=== PATIENT | female | born 1940 | race Caucasian/White ===

== ENCOUNTER 2018-10-16 21:55 | Inpatient (IN) | payer MEDICARE ==
[2018-10-17] MEDS ORDERED: Lactated Ringers 1,000 ML IV SCH
[2018-10-17] MEDS ORDERED: fentaNYL 100 MCG/2 ML SDV IVPUSH ONE (00:02)
[2018-10-17] MEDS ORDERED: Ondansetron 4 MG/2 ML SDV IVPUSH ONE (00:02)
--- NOTE | 2018-10-17 00:03 | EDM.PDOC ---
ED HPI GENERAL MEDICAL PROBLEM - General Chief Complaint: Abdominal Pain Stated Complaint: GALLBLADDER ATTACK? Time Seen by Provider: 10/16/18 23:57 Source of Information: Reports: Patient, Family, RN Notes Reviewed History Limitations: Reports: No Limitations - History of Present Illness INITIAL COMMENTS - FREE TEXT/NARRATIVE: 78-year-old female presents to the emergency department today complaint of abdominal pain, she states it happened after she eaten a meal pain is predominantly in the upper half of her abdomen nausea and vomiting as well still passing gas does have a history of acute appendicitis several years ago abdominal Pain Score (Numeric/FACES): 8 - Related Data Allergies Allergy/AdvReac Type Severity Reaction Status Date / Time erythromycin base Allergy Nausea and Verified 10/16/18 23:09 Vomiting Home Meds: Home Meds Aspirin 80 mg PO DAILY 10/16/18 [History] Famotidine [Pepcid] 20 mg PO DAILY 10/16/18 [History] Metoprolol Succinate 100 mg PO DAILY 10/16/18 [History] amLODIPine Besylate [Amlodipine Besylate] 10 mg PO DAILY 10/16/18 [History] Past Medical History Cardiovascular History: Reports: Hypertension Gastrointestinal History: Reports: GERD Oncologic (Cancer) History: Reports: Breast - Past Surgical History Cardiovascular Surgical History: Reports: None GI Surgical History: Reports: Appendectomy Oncologic Surgical History: Reports: Mastectomy Social & Family History - Tobacco Use Smoking Status *Q: Never Smoker - Recreational Drug Use Recreational Drug Use: No ED ROS GENERAL - Review of Systems Review Of Systems: See Below Constitutional: Reports: No Symptoms HEENT: Reports: No Symptoms Respiratory: Reports: No Symptoms Cardiovascular: Reports: No Symptoms GI/Abdominal: Reports: Abdominal Pain, Flatus, Nausea. Denies: Constipation, Diarrhea, Vomiting : Reports: No Symptoms ED EXAM, GI/ABD - Physical Exam Exam: See Below Exam Limited By: No Limitations General Appearance: Alert, WD/WN, No Apparent Distress Respiratory/Chest: No Respiratory Distress, Lungs Clear, Normal Breath Sounds, No Accessory Muscle Use, Chest Non-Tender Cardiovascular: Normal Peripheral Pulses, Regular Rate, Rhythm GI/Abdominal Exam: Normal Bowel Sounds, Soft, No Distention, Guarding, Tender ( Right upper quadrant) Course - Vital Signs Last Recorded V/S: Last Vital Signs Temp 95.9 F 10/16/18 22:53 Pulse 63 10/17/18 01:44 Resp 12 10/17/18 01:44 BP 129/61 10/17/18 01:44 Pulse Ox 98 10/17/18 01:44 - Orders/Labs/Meds Orders: Active Orders 24 hr Category Date Time Status Peripheral IV Care [RC] . DIRECTED Care 10/17/18 00:00 Active UA W/MICROSCOPIC [URIN] Urgent Lab 10/17/18 00:00 Ordered Lactated Ringers [Ringers, Lactated] 1,000 ml Med 10/17/18 00:00 Active IV ASDIRECTED Sodium Chloride 0.9% [Normal Saline] 74 ml Med 10/17/18 00:15 Active IV ASDIRECTED Sodium Chloride 0.9% [Saline Flush] Med 10/17/18 00:00 Active 10 ml FLUSH ASDIRECTED PRN Peripheral IV Insertion Adult [OM.PC] Urgent Oth 10/17/18 00:00 Ordered Medication Orders Lactated Ringer's (Ringers, Lactated) 1,000 mls @ 500 mls/hr IV ASDIRECTED NORA Last Admin: 10/17/18 01:01 Dose: 500 mls/hr Sodium Chloride (Normal Saline) 74 mls @ 0 mls/hr IV ASDIRECTED NORA Last Admin: 10/17/18 01:46 Dose: 3 mls/hr Sodium Chloride (Saline Flush) 10 ml FLUSH ASDIRECTED PRN PRN Reason: Keep Vein Open Last Admin: 10/17/18 01:46 Dose: 10 ml Admin: 10/17/18 01:01 Dose: 10 ml Labs: Laboratory Tests 10/17/18 10/17/18 10/17/18 Range/Units 00:10 00:10 00:10 WBC 8.4 (4.5-11.0) K/uL RBC 3.90 (3.30-5.50) M/uL Hgb 12.1 (12.0-15.0) g/dL Hct 36.5 (36.0-48.0) % MCV 94 (80-98) fL MCH 31 (27-31) pg MCHC 33 (32-36) % Plt Count 151 (150-400) K/uL Neut % (Auto) 74 H (36-66) % Lymph % (Auto) 19 L (24-44) % [place] % (Auto) 6 (2-6) % Eos % (Auto) 1 L (2-4) % Baso % (Auto) 0 (0-1) % Sodium 140 (140-148) mmol/L Potassium 3.5 L (3.6-5.2) mmol/L Chloride 104 (100-108) mmol/L Carbon Dioxide 29 (21-32) mmol/L Anion Gap 10.5 (5.0-14.0) mmol/L BUN 18 (7-18) mg/dL Creatinine 0.8 (0.6-1.0) mg/dL Est Cr Clr Drug Dosing 46.40 mL/min Estimated GFR (MDRD) > 60 (>60) Glucose 158 H (74-106) mg/dL Lactic Acid 1.0 (0.4-2.0) mmol/L Calcium 9.0 (8.5-10.1) mg/dL Total Bilirubin 0.2 (0.2-1.0) mg/dL AST 20 (15-37) U/L ALT 22 (12-78) U/L Alkaline Phosphatase 71 (46-116) U/L Total Protein 7.3 (6.4-8.2) g/dL Albumin 3.4 (3.4-5.0) g/dL Globulin 3.9 H (2.3-3.5) g/dL Albumin/Globulin Ratio 0.9 L (1.2-2.2) Lipase 180 (73-393) U/L Meds: Medications Generic Name Dose Route Start Last Admin Trade Name Freq PRN Reason Stop Dose Admin Lactated Ringer's 1,000 mls @ 500 mls/hr 10/17/18 00:00 10/17/18 01:01 Ringers, Lactated IV 500 mls/hr ASDIRECTED NORA Administration Sodium Chloride 74 mls @ 0 mls/hr 10/17/18 00:15 10/17/18 01:46 Normal Saline IV 3 mls/hr ASDIRECTED NORA Administration KVO Sodium Chloride 10 ml 10/17/18 00:00 10/17/18 01:46 Saline Flush FLUSH 10 ml ASDIRECTED PRN Administration Keep Vein Open Discontinued Medications Generic Name Dose Route Start Last Admin Trade Name Freq PRN Reason Stop Dose Admin Fentanyl 50 mcg 10/17/18 00:02 10/17/18 00:57 Sublimaze IVPUSH 10/17/18 00:03 50 mcg ONETIME ONE Administration Iopamidol 112 ml 10/17/18 00:15 10/17/18 01:45 Isovue-300 (61%) IV 112 ml . DIRECTED NORA Administration Ondansetron HCl 4 mg 10/17/18 00:02 10/17/18 00:56 Zofran IVPUSH 10/17/18 00:03 4 mg ONETIME ONE Administration Sodium Chloride 10 ml 10/17/18 00:14 10/17/18 01:53 Saline Flush FLUSH 10/17/18 00:15 Not Given ONETIME ONE Departure - Departure Time of Disposition: 02:44 Disposition: Refer to Observation Condition: Fair Clinical Impression: Dilated bile duct - Discharge Information Referrals: Brook Woodard MD [Primary Care Provider] - Forms: ED Department Discharge - My Orders Last 24 Hours: My Active Orders 10/17/18 00:00 Peripheral IV Care [RC] . DIRECTED UA W/MICROSCOPIC [URIN] Urgent Lactated Ringers [Ringers, Lactated] 1,000 ml IV ASDIRECTED Sodium Chloride 0.9% [Saline Flush] 10 ml FLUSH ASDIRECTED PRN Peripheral IV Insertion Adult [OM.PC] Urgent 10/17/18 00:15 Sodium Chloride 0.9% [Normal Saline] 74 ml IV ASDIRECTED - Assessment/Plan Last 24 Hours: My Active Orders 10/17/18 00:00 Peripheral IV Care [RC] . DIRECTED UA W/MICROSCOPIC [URIN] Urgent Lactated Ringers [Ringers, Lactated] 1,000 ml IV ASDIRECTED Sodium Chloride 0.9% [Saline Flush] 10 ml FLUSH ASDIRECTED PRN Peripheral IV Insertion Adult [OM.PC] Urgent 10/17/18 00:15 Sodium Chloride 0.9% [Normal Saline] 74 ml IV ASDIRECTED Plan: Assessment Acuity = acute Site and laterality = dilated gallbladder duct 9 mm Etiology = suspicious for stone Manifestations = abdominal pain Location of injury = Home Lab values = CBC, CMP unremarkable CT scan describes a dilated duct above Plan Called discussed the case with Dr. Pereyra at 2:30 he kindly accepted the patient for admission to the hospital This note was dictated using [employer] voice recognition software please call with any questions on syntax or grammar.
[2018-10-17] MEDS ORDERED: Sodium Chloride 0.9% 10 ML Syringe FLUSH ONE (00:14)
[2018-10-17] MEDS ORDERED: Iopamidol 612 MG/ML 150 ML Bottle IV SCH (00:15)
[2018-10-17] MEDS: Sodium Chloride 0.9% 10 ML Syringe FLUSH PRN ×2 (01:01→01:46)
[2018-10-17] MEDS ORDERED: Ondansetron 4 MG/2 ML SDV IV PRN (02:49)
[2018-10-17] MEDS ORDERED: fentaNYL 100 MCG/2 ML SDV IVPUSH PRN (02:51)
[2018-10-17] MEDS ORDERED: Sodium Chloride 0.9% 1,000 ML IV SCH (07:45)
--- NOTE | 2018-10-17 08:01 | PCM.HP ---
H&P History of Present Illness - General Date of Service: 10/17/18 Admit Problem/Dx: Admission Diagnosis/Problem Admission Diagnosis/Problem Abdominal pain Source of Information: Patient History Limitations: Reports: No Limitations (.) - History of Present Illness Initial Comments - Free Text/Narative: 78-year-old female with past medical history of hypertension, breast cancer, previous history of rheumatoid heart disease, systolic heart murmur came to the ED with a concerns of abdominal pain which was started since last 4 hours. Patient reports that the pain is situated in the upper abdominal area. Patient denies any dyspepsia, heartburn, acid reflux. Patient denies any recent fever, sick contacts. Patient had 4 episodes of vomiting with abdominal pain. Patient denies any blood in the vomiting. Denies any joint pains, previous history of recurrent abdominal pains. Denies any abdominal surgeries. In the ED patient had CT abdomen pelvis which showed dilated common bile duct without any stone. Patient responded with fentanyl IV medication. Patient is full code. Other review of systems are not significant abdominal Pain Score (Numeric/FACES): 7 - Related Data Allergies/Adverse Reactions: Allergies Allergy/AdvReac Type Severity Reaction Status Date / Time erythromycin base Allergy Nausea and Verified 10/17/18 03:52 Vomiting latex Allergy Rash Verified 10/17/18 03:52 Home Medications: Home Meds Aspirin 81 mg PO DAILY 10/16/18 [History] Famotidine [Pepcid] 20 mg PO DAILY 10/16/18 [History] Metoprolol Succinate 100 mg PO DAILY 10/16/18 [History] amLODIPine Besylate [Amlodipine Besylate] 10 mg PO DAILY 10/16/18 [History] Calcium Carbonate/Vitamin D3 [Calcium 500 + Vit D 400] 1 each PO BID 10/17/18 [ History] Past Medical History HEENT History: Reports: Cataract, Hard of Hearing, Impaired Vision Cardiovascular History: Reports: Hypertension Gastrointestinal History: Reports: GERD Musculoskeletal History: Reports: Fracture Oncologic (Cancer) History: Reports: Breast Dermatologic History: Reports: Other (See Below) Other Dermatologic History: toe fungus - Infectious Disease History Infectious Disease History: Reports: Chicken Pox, Measles, Mumps, Shingles - Past Surgical History HEENT Surgical History: Reports: Tonsillectomy Cardiovascular Surgical History: Reports: None GI Surgical History: Reports: Appendectomy Oncologic Surgical History: Reports: Mastectomy Social & Family History - Family History Family Medical History: Noncontributory - Tobacco Use Smoking Status *Q: Former Smoker Used Tobacco, but Quit: Yes Month/Year Tobacco Last Used: 03/1979 Second Hand Smoke Exposure: No - Caffeine Use Caffeine Use: Reports: Coffee Caffeine Use Comment: 2 cups/daily - Recreational Drug Use Recreational Drug Use: No H&P Review of Systems - Review of Systems: Review Of Systems: See Below General: Reports: Fatigue. Denies: Fever, Chills, Weakness, Night Sweats, Diaphoresis HEENT: Denies: Dysphasia, Ear Pain, Eye Pain Pulmonary: Denies: Shortness of Breath, Wheezing, Pleuritic Chest Pain, Cough, Sputum Cardiovascular: Denies: Chest Pain, Palpitations, Dyspnea on Exertion, Orthopnea , PND Gastrointestinal: Reports: Abdominal Pain, Anorexia, Nausea, Vomiting. Denies: Black Stool, Bloody Stool, Constipation, Diarrhea, Decreased Appetite, Hematemesis Genitourinary: Denies: Dysuria, Frequency, Burning Musculoskeletal: Denies: Neck Pain, Shoulder Pain Skin: Denies: Cyanosis, Jaundice Psychiatric: Denies: Confusion, Depression, Mood Lability Neurological: Denies: Confusion, Dizziness Hematologic/Lymphatic: Denies: Anemia Exam - Exam Exam: See Below - Vital Signs Vital Signs: Last Vital Signs Temp 36.2 C 10/17/18 03:33 Pulse 67 10/17/18 03:33 Resp 18 10/17/18 03:33 BP 140/63 10/17/18 03:33 Pulse Ox 92 L 10/17/18 03:33 Weight: 76.929 kg - Exam Quality Assessment: No: Supplemental Oxygen General: Alert, Oriented Neck: Supple, Trachea Midline Lungs: Clear to Auscultation, Normal Respiratory Effort Cardiovascular: Regular Rate, Regular Rhythm, Systolic Murmur GI/Abdominal Exam: Normal Bowel Sounds, Soft, Tender. No: Distended, Guarding, Rigid, Rebound Extremities: Normal Inspection, Normal Range of Motion Skin: Warm, Dry, Intact Neuro Extensive - Mental Status: Alert, Oriented x3, Normal Mood/Affect - Patient Data Lab Results Last 24 hrs: Laboratory Results - last 24 hr 10/17/18 10/17/18 10/17/18 Range/Units 00:10 00:10 00:10 WBC 8.4 (4.5-11.0) K/uL RBC 3.90 (3.30-5.50) M/uL Hgb 12.1 (12.0-15.0) g/dL Hct 36.5 (36.0-48.0) % MCV 94 (80-98) fL MCH 31 (27-31) pg MCHC 33 (32-36) % Plt Count 151 (150-400) K/uL Neut % (Auto) 74 H (36-66) % Lymph % (Auto) 19 L (24-44) % [place] % (Auto) 6 (2-6) % Eos % (Auto) 1 L (2-4) % Baso % (Auto) 0 (0-1) % Sodium 140 (140-148) mmol/L Potassium 3.5 L (3.6-5.2) mmol/L Chloride 104 (100-108) mmol/L Carbon Dioxide 29 (21-32) mmol/L Anion Gap 10.5 (5.0-14.0) mmol/L BUN 18 (7-18) mg/dL Creatinine 0.8 (0.6-1.0) mg/dL Est Cr Clr Drug Dosing 46.40 mL/min Estimated GFR (MDRD) > 60 (>60) Glucose 158 H (74-106) mg/dL Lactic Acid 1.0 (0.4-2.0) mmol/L Calcium 9.0 (8.5-10.1) mg/dL Total Bilirubin 0.2 (0.2-1.0) mg/dL AST 20 (15-37) U/L ALT 22 (12-78) U/L Alkaline Phosphatase 71 (46-116) U/L Total Protein 7.3 (6.4-8.2) g/dL Albumin 3.4 (3.4-5.0) g/dL Globulin 3.9 H (2.3-3.5) g/dL Albumin/Globulin Ratio 0.9 L (1.2-2.2) Lipase 180 (73-393) U/L 10/17/18 10/17/18 Range/Units 06:01 06:01 WBC 8.1 (4.5-11.0) K/uL RBC 3.54 (3.30-5.50) M/uL Hgb 10.8 L (12.0-15.0) g/dL Hct 33.0 L (36.0-48.0) % MCV 93 (80-98) fL MCH 31 (27-31) pg MCHC 33 (32-36) % Plt Count 146 L (150-400) K/uL Neut % (Auto) 79 H (36-66) % Lymph % (Auto) 14 L (24-44) % [place] % (Auto) 7 H (2-6) % Eos % (Auto) 0 L (2-4) % Baso % (Auto) 0 (0-1) % Sodium 139 L (140-148) mmol/L Potassium 3.6 (3.6-5.2) mmol/L Chloride 104 (100-108) mmol/L Carbon Dioxide 27 (21-32) mmol/L Anion Gap 11.6 (5.0-14.0) mmol/L BUN 14 (7-18) mg/dL Creatinine 0.7 (0.6-1.0) mg/dL Est Cr Clr Drug Dosing 53.02 mL/min Estimated GFR (MDRD) > 60 (>60) Glucose 150 H (74-106) mg/dL Lactic Acid (0.4-2.0) mmol/L Calcium 8.9 (8.5-10.1) mg/dL Total Bilirubin 0.3 (0.2-1.0) mg/dL AST 18 (15-37) U/L ALT 20 (12-78) U/L Alkaline Phosphatase 67 (46-116) U/L Total Protein 6.7 (6.4-8.2) g/dL Albumin 3.1 L (3.4-5.0) g/dL Globulin 3.6 H (2.3-3.5) g/dL Albumin/Globulin Ratio 0.9 L (1.2-2.2) Lipase (73-393) U/L Result Diagrams: 10/17/18 06:01 10/17/18 06:01 - Problem List (1) Dilated bile duct SNOMED Code(s): 799213260 ICD Code: K83.8 - OTHER SPECIFIED DISEASES OF BILIARY TRACT Status: Acute Current Visit: Yes (2) Benign essential HTN SNOMED Code(s): 6254237 ICD Code: I10 - ESSENTIAL (PRIMARY) HYPERTENSION Status: Chronic Current Visit: No (3) Hx of rheumatic heart disease SNOMED Code(s): 597372586 ICD Code: Z86.79 - PERSONAL HISTORY OF OTHER DISEASES OF THE CIRCULATORY SYSTEM Status: Chronic Current Visit: No (4) Malignant neoplasm of breast SNOMED Code(s): 318888530 ICD Code: C50.919 - MALIGNANT NEOPLASM OF UNSP SITE OF UNSPECIFIED FEMALE BREAST Status: Chronic Current Visit: No (5) Systolic murmur SNOMED Code(s): 83901339 ICD Code: R01.1 - CARDIAC MURMUR, UNSPECIFIED Status: Chronic Current Visit: No Problem List Initiated/Reviewed/Updated: Yes Orders Last 24hrs: Active Orders 24 hr Category Date Time Status Patient Status [ADT] Routine ADT 10/17/18 02:45 Active Intake and Output [RC] QSHIFT Care 10/17/18 02:49 Active Oxygen Therapy [RC] PRN Care 10/17/18 02:49 Active Up With Assistance [RC] ASDIRECTED Care 10/17/18 02:49 Active VTE/DVT Education [RC] Per Unit Routine Care 10/17/18 02:49 Active Vital Signs [RC] Q4H Care 10/17/18 02:45 Active Nothing per Oral Now Diet [DIET] Diet 10/17/18 Breakfast Active Abdomen wo Cont [MR] Stat Exams 10/17/18 02:52 Ordered UA W/MICROSCOPIC [URIN] Urgent Lab 10/17/18 00:00 Ordered Famotidine [Pepcid] Med 10/17/18 09:00 Active 20 mg PO DAILY Lactated Ringers [Ringers, Lactated] 1,000 ml Med 10/17/18 00:00 Active IV ASDIRECTED Non-Formulary Medication [NF Drug] Med 10/17/18 09:00 Active 100 each PO DAILY Ondansetron [Zofran] Med 10/17/18 02:49 Active 4 mg IV Q6H PRN Sodium Chloride 0.9% [Normal Saline] 1,000 ml Med 10/17/18 07:45 Ordered IV ASDIRECTED Sodium Chloride 0.9% [Saline Flush] Med 10/17/18 00:00 Active 10 ml FLUSH ASDIRECTED PRN amLODIPine [Norvasc] Med 10/17/18 09:00 Active 10 mg PO DAILY fentaNYL [Sublimaze] Med 10/17/18 02:51 Active 50 mcg IVPUSH Q6H PRN Peripheral IV Insertion Adult [OM.PC] Urgent Oth 10/17/18 00:00 Ordered Sequential Compression Device [OM.PC] Per Unit Routine Oth 10/17/18 02:49 Ordered Resuscitation Status Routine Resus Stat 10/17/18 02:45 Ordered Medication Orders Amlodipine Besylate (Norvasc) 10 mg PO DAILY NORA Famotidine (Pepcid) 20 mg PO DAILY NORA Fentanyl (Sublimaze) 50 mcg IVPUSH Q6H PRN PRN Reason: Pain (severe 7-10) Last Admin: 10/17/18 04:10 Dose: 50 mcg Lactated Ringer's (Ringers, Lactated) 1,000 mls @ 500 mls/hr IV ASDIRECTED NORA Last Admin: 10/17/18 01:01 Dose: 500 mls/hr Sodium Chloride (Normal Saline) 1,000 mls @ 150 mls/hr IV ASDIRECTED NORA Metoprolol Succinate 100mg Tab Pt Own* * 100 each PO DAILY [facility] Ondansetron HCl (Zofran) 4 mg IV Q6H PRN PRN Reason: Nausea/Vomiting Sodium Chloride (Saline Flush) 10 ml FLUSH ASDIRECTED PRN PRN Reason: Keep Vein Open Last Admin: 10/17/18 01:46 Dose: 10 ml Admin: 10/17/18 01:01 Dose: 10 ml Assessment/Plan Comment:: 78-year-old female with past medical history of breast cancer, hypertension, rheumatoid heart disease, heart murmur came to the ED with a complaining of abdominal pain diagnosed with questionable choledocholithiasis and admitted into the hospital in observational status. Patient WBC count is within normal limit Patient is responding with fentanyl IV Received 1 L of bolus Ringer lactate We will place her on 150 mL/h normal saline maintenance IV fluids N.p.o. for now We will do MRCP for confirmation of choledocholithiasis CBC CMP tomorrow CODE STATUS full code IV fluids 150 mL normal saline DVT prophylaxis Pass boots Diet n.p.o. for now Cespedes catheter not indicated
[2018-10-17] MEDS ORDERED: Morphine 2 MG/ML Syringe IVPUSH PRN (08:03)
[2018-10-17] MEDS: Sodium Chloride 0.9% 1,000 ML IV SCH ×3 (08:38→21:24)
[2018-10-17] MEDS ORDERED: Famotidine 20 MG Tab PO SCH (09:00)
[2018-10-17] MEDS: METOPROLOL SUCCINATE 100 MG PO SCH (09:48)
[2018-10-17] MEDS: amLODIPine 10 MG Tab**POM PO SCH (09:48)
[2018-10-17] MEDS ORDERED: Ondansetron 4 MG Tab.DIS PO PRN (14:24)
--- NOTE | 2018-10-17 14:27 | PCM.SN ---
- Free Text/Narrative Note: MRCP did not show evidence for common bile duct stone but did reveal cholelithiasis. I suspect the patient did pass a stone and this was the source of her symptoms. Pain is relatively mild at this time. She continues to have episodes of vomiting. She will remain hospitalized overnight for additional symptomatic management. Cholecystectomy may be considered tomorrow if she does not improve or will be completed as an outpatient next week if she's feeling better in the morning. Vazquez Cisneros M.D.
[2018-10-17] MEDS ORDERED: Pantoprazole 40 MG Vial IVPUSH ONE (15:00)
[2018-10-17] MEDS: Potassium Chloride 20 MEQ, Lidocaine 1% 2 ML in Sodium Chloride 0.9% 100 ML IV SCH ×2 (16:21→18:22)
[2018-10-17] MEDS: Acetaminophen 325 MG Tab PO PRN (16:29)
[2018-10-18] MEDS: METOPROLOL SUCCINATE 100 MG PO SCH (09:26)
[2018-10-18] MEDS: amLODIPine 10 MG Tab**POM PO SCH (09:26)
[2018-10-18] MEDS ORDERED: Lidocaine 1% with EPINEPHrine 1:100,000 50 ML MDV ONE (09:54)
[2018-10-18] MEDS ORDERED: Bupivacaine 0.5% 50 ML MDV ONE (09:54)
[2018-10-18] MEDS: Piperacillin/Tazobactam/Dext 3.375 GM in Premix Bag 1 BAG IV SCH ×3 (10:19→21:20)
[2018-10-18] MEDS ORDERED: Dexamethasone 4 MG/ML SDV ONE (11:07)
[2018-10-18] MEDS ORDERED: Ondansetron 4 MG/2 ML SDV ONE (11:07)
[2018-10-18] MEDS ORDERED: Neostigmine Methylsulfate 1 MG/ML 5 ML Syringe ONE (11:07)
[2018-10-18] MEDS ORDERED: Propofol 200 MG/20 ML SDV ONE (11:07)
[2018-10-18] MEDS ORDERED: Glycopyrrolate 0.2 MG/ML 5 ML MDV ONE (11:07)
[2018-10-18] MEDS ORDERED: Rocuronium 50 MG/5 ML Vial ONE (11:07)
[2018-10-18] MEDS ORDERED: fentaNYL 250 MCG/5 ML SDV ONE (11:07)
[2018-10-18] MEDS ORDERED: Naloxone 0.4 MG/ML SDV ONE (12:36)
[2018-10-18] MEDS: Acetaminophen/HYDROcodone 325-5 MG Tab PO PRN ×2 (14:53→19:09)
--- NOTE | 2018-10-18 14:57 | PCM.PN ---
- General Info Date of Service: 10/18/18 Subjective Update: Overnight the patient had difficulty with abdominal pain and nausea. She also had fevers last night. I did initiate antibiotics early this morning. AST, ALT and bilirubin have jumped up compared to yesterday. Alkaline phosphatase remains normal. No complaints of shortness of breath. Patient was interested in cholecystectomy if possible today. She is now status post cholecystectomy which was uneventful. Functional Status: Reports: Pain Controlled. Denies: Tolerating Diet - Review of Systems General: Reports: Fever Gastrointestinal: Reports: Abdominal Pain, Nausea - Patient Data Vitals - Most Recent: Last Vital Signs Temp 37.7 C 10/18/18 14:00 Pulse 71 10/18/18 14:00 Resp 18 10/18/18 14:00 BP 134/64 10/18/18 14:00 Pulse Ox 92 L 10/18/18 14:00 Weight - Most Recent: 76.929 kg I&O - Last 24 Hours: Intake & Output 10/17/18 10/18/18 10/18/18 22:59 06:59 14:59 Intake Total 2215 Output Total 200 300 Balance 2015 -300 Lab Results Last 24 Hours: Laboratory Results - last 24 hr 10/18/18 10/18/18 10/18/18 Range/Units 05:40 06:01 06:01 WBC 9.3 (4.5-11.0) K/uL RBC 3.62 (3.30-5.50) M/uL Hgb 10.7 L (12.0-15.0) g/dL Hct 34.1 L (36.0-48.0) % MCV 94 (80-98) fL MCH 30 (27-31) pg MCHC 31 L (32-36) % Plt Count 118 L (150-400) K/uL Sodium 141 (140-148) mmol/L Potassium 3.5 L (3.6-5.2) mmol/L Chloride 107 (100-108) mmol/L Carbon Dioxide 30 (21-32) mmol/L Anion Gap 7.5 (5.0-14.0) mmol/L BUN 10 (7-18) mg/dL Creatinine 0.7 (0.6-1.0) mg/dL Est Cr Clr Drug Dosing 53.01 mL/min Estimated GFR (MDRD) > 60 (>60) Glucose 113 H (74-106) mg/dL Calcium 8.5 (8.5-10.1) mg/dL Total Bilirubin 2.8 H D (0.2-1.0) mg/dL Direct Bilirubin 1.72 H (0.0-0.2) mg/dL AST 244 H D (15-37) U/L ALT 237 H (12-78) U/L Alkaline Phosphatase 87 (46-116) U/L Total Protein 5.9 L (6.4-8.2) g/dL Albumin 2.6 L (3.4-5.0) g/dL Globulin 3.3 (2.3-3.5) g/dL Albumin/Globulin Ratio 0.8 L (1.2-2.2) Thomas Results Last 24 Hours: Microbiology 10/18/18 12:35 Gram Stain - Final Gallbladder Med Orders - Current: Current Medications Acetaminophen (Tylenol) 650 mg PO Q4H PRN PRN Reason: Pain/Fever Last Admin: 10/17/18 16:29 Dose: 650 mg Hydrocodone Bitart/Acetaminophen ([place] 325-5 Mg) 1 - 2 tab PO Q4H PRN PRN Reason: Pain Amlodipine Besylate (Norvasc) 10 mg PO DAILY [facility] Last Admin: 10/18/18 09:26 Dose: 10 mg Sodium Chloride (Normal Saline) 1,000 mls @ 100 mls/hr IV ASDIRECTED [facility] Last Admin: 10/17/18 21:24 Dose: 150 mls/hr Piperacillin/Tazobactam/ (Dextrose 3.375 gm/ Premix) 50 mls @ 100 mls/hr IV Q6H [facility] Last Admin: 10/18/18 10:19 Dose: 100 mls/hr Morphine Sulfate (Morphine) 2 mg IVPUSH Q4H PRN PRN Reason: Pain (moderate 4-6) Metoprolol Succinate 100mg Tab Pt Own* * 100 each PO DAILY [facility] Last Admin: 10/18/18 09:26 Dose: Not Given Ondansetron HCl (Zofran) 4 mg IV Q6H PRN PRN Reason: Nausea/Vomiting Last Admin: 10/17/18 14:31 Dose: 4 mg Ondansetron HCl (Zofran Odt) 4 mg PO Q6H PRN PRN Reason: Nausea/Vomiting Last Admin: 10/18/18 09:26 Dose: 4 mg Sodium Chloride (Saline Flush) 10 ml FLUSH ASDIRECTED PRN PRN Reason: Keep Vein Open Last Admin: 10/17/18 01:46 Dose: 10 ml Discontinued Medications Bupivacaine HCl (Marcaine 0.5%) Confirm Administered Dose 50 ml .ROUTE .STK-MED ONE Stop: 10/18/18 09:55 Last Admin: 10/18/18 11:50 Dose: 20 ml Dexamethasone (Dexamethasone) Confirm Administered Dose 4 mg .ROUTE .STK-MED ONE Stop: 10/18/18 11:08 Famotidine (Pepcid) 20 mg PO DAILY [facility] Last Admin: 10/17/18 09:48 Dose: Not Given Fentanyl (Sublimaze) 50 mcg IVPUSH ONETIME ONE Stop: 10/17/18 00:03 Last Admin: 10/17/18 00:57 Dose: 50 mcg Fentanyl (Sublimaze) 50 mcg IVPUSH Q6H PRN PRN Reason: Pain (severe 7-10) Last Admin: 10/17/18 04:10 Dose: 50 mcg Fentanyl (Sublimaze) Confirm Administered Dose 250 mcg .ROUTE .STK-MED ONE Stop: 10/18/18 11:08 Glycopyrrolate (Robinul) Confirm Administered Dose 1 mg .ROUTE .STK-MED ONE Stop: 10/18/18 11:08 Lactated Ringer's (Ringers, Lactated) 1,000 mls @ 500 mls/hr IV ASDIRECTED [facility] Last Admin: 10/17/18 01:01 Dose: 500 mls/hr Sodium Chloride (Normal Saline) 74 mls @ 0 mls/hr IV ASDIRECTED [facility] Last Admin: 10/17/18 01:46 Dose: 3 mls/hr Potassium Chloride 20 meq/Lidocaine HCl 2 ml/ Sodium Chloride 112 mls @ 50 mls/ hr IV Q2H [facility] Stop: 10/17/18 19:59 Last Admin: 10/17/18 18:22 Dose: 50 mls/hr Iopamidol (Isovue-300 (61%)) 112 ml IV . DIRECTED [facility] Last Admin: 10/17/18 01:45 Dose: 112 ml Lidocaine/Epinephrine (Xylocaine 1% With Epinephrine 1:100,000) Confirm Administered Dose 50 ml .ROUTE .STK-MED ONE Stop: 10/18/18 09:55 Last Admin: 10/18/18 11:51 Dose: 20 ml Naloxone HCl (Narcan) Confirm Administered Dose 0.4 mg .ROUTE .STK-MED ONE Stop: 10/18/18 12:37 Neostigmine Methylsulfate (Neostigmine) Confirm Administered Dose 5 mg .ROUTE .STK-MED ONE Stop: 10/18/18 11:08 Ondansetron HCl (Zofran) 4 mg IVPUSH ONETIME ONE Stop: 10/17/18 00:03 Last Admin: 10/17/18 00:56 Dose: 4 mg Ondansetron HCl (Zofran) Confirm Administered Dose 4 mg .ROUTE .STK-MED ONE Stop: 10/18/18 11:08 Pantoprazole Sodium (Protonix Iv) 40 mg IVPUSH ONETIME ONE Stop: 10/17/18 15:01 Last Admin: 10/17/18 14:52 Dose: 40 mg Propofol (Diprivan 20 Ml) Confirm Administered Dose 200 mg .ROUTE .STK-MED ONE Stop: 10/18/18 11:08 Rocuronium [place] (Zemuron) Confirm Administered Dose 50 mg .ROUTE .STK-MED ONE Stop: 10/18/18 11:08 Sodium Chloride (Saline Flush) 10 ml FLUSH ONETIME ONE Stop: 10/17/18 00:15 Last Admin: 10/17/18 01:53 Dose: Not Given - Exam Quality Assessment: Supplemental Oxygen General: Alert, Oriented, Cooperative, No Acute Distress Lungs: Normal Respiratory Effort Cardiovascular: Regular Rate, Regular Rhythm GI/Abdominal Exam: Soft, No Distention Extremities: No Pedal Edema Psy/Mental Status: Alert, Normal Affect - Problem List Review Problem List Initiated/Reviewed/Updated: Yes - My Orders Last 24 Hours: My Active Orders 10/17/18 14:24 Ondansetron [Zofran ODT] 4 mg PO Q6H PRN 10/17/18 14:25 Acetaminophen [Tylenol] 650 mg PO Q4H PRN 10/18/18 10:00 Piperacillin/Tazobactam/Dext [Zosyn in Dextrose Iso-Osmotic 3.375 GM] 3.375 gm Premix Bag 1 bag IV Q6H 10/18/18 11:45 Admission Status [Patient Status] [ADT] Routine 10/18/18 12:20 Consult to Physician [CONS] Routine 10/18/18 12:21 Notify Provider Consults [RC] ASDIRECTED - Plan Plan:: ASSESSMENT AND PLAN - Acute cholecystitis with cholelithiasis - initial CT showed dilation of the biliary duct. No evidence for stone noted on MRCP yesterday. Patient has had persistent pain and nausea and now has fevers. Antibiotics initiated. Hepatic panel laboratory testing shows abnormalities today with a bilirubin of 2.8 and elevation in the transaminases which are new compared to yesterday. Cholecystectomy performed this afternoon. -Continue antibiotics -IV fluids -Pain control -Repeat labs in the morning Essential hypertension - continue home medications Maintenance issues - - DVT prophylaxis - mechanical - GI prophylaxis - not indicated - Nutrition - clear liquids, advance as tolerated Admission justification - patient was initially admitted as an observation status but she has been transitioned in patient with persistent symptoms, new lab abnormalities and fever which have developed during the hospital stay. Disposition - I would anticipate discharge home after the hospital stay. Vazquez Cisneros M.D.
[2018-10-18] MEDS: Sodium Chloride 0.9% 1,000 ML IV SCH (21:20)
[2018-10-19] MEDS: Acetaminophen/HYDROcodone 325-5 MG Tab PO PRN (03:23)
[2018-10-19] MEDS: Piperacillin/Tazobactam/Dext 3.375 GM in Premix Bag 1 BAG IV SCH ×4 (03:24→21:23)
[2018-10-19] MEDS: Sodium Chloride 0.9% 1,000 ML IV SCH (08:36)
[2018-10-19] MEDS: amLODIPine 10 MG Tab**POM PO SCH (08:53)
[2018-10-19] MEDS: METOPROLOL SUCCINATE 100 MG PO SCH (08:53)
[2018-10-19] MEDS ORDERED: D5 1/2 NS w/ 20 mEq/L KCl 1,000 ML IV SCH (10:00)
[2018-10-19] MEDS ORDERED: Metoprolol Succinate 50 MG Tab.ER PO SCH (10:00)
--- NOTE | 2018-10-19 10:05 | PCM.SURGPN ---
- General Info Date of Service: 10/19/18 Date of Surgery/Procedure: 10/18/18 POD#: 1 Post-Op Diagnosis: Acute cholecystitis with cholelithiasis, elevated LFT's Functional Status: Reports: Pain Controlled, Tolerating Diet (Clear liquid), Ambulating, Urinating, Incentive Spirometry - Review of Systems General: Reports: No Symptoms HEENT: Reports: No Symptoms Pulmonary: Reports: No Symptoms Cardiovascular: Reports: No Symptoms Gastrointestinal: Reports: No Symptoms, Other (Tolerating clear liquid diet. ). Denies: Flatus, Nausea, Vomiting Genitourinary: Reports: No Symptoms Musculoskeletal: Reports: No Symptoms Skin: Reports: No Symptoms Neurological: Reports: No Symptoms Psychiatric: Reports: No Symptoms - Patient Data Vitals - Most Recent: Last Vital Signs Temp 97 F 10/19/18 07:33 Pulse 60 10/19/18 07:33 Resp 16 10/19/18 07:33 BP 121/58 L 10/19/18 07:33 Pulse Ox 93 L 10/19/18 07:33 Weight - Most Recent: 169 lb 9.59 oz I&O - Last 24 Hours: Intake & Output 10/18/18 10/19/18 10/19/18 22:59 06:59 14:59 Intake Total 704 1254 Output Total 30 305 Balance 674 949 Lab Results Last 24 Hrs: Laboratory Results - last 24 hr 10/18/18 10/19/18 10/19/18 Range/Units 05:40 05:00 05:00 WBC 9.7 (4.5-11.0) K/uL RBC 3.19 L (3.30-5.50) M/uL Hgb 9.6 L (12.0-15.0) g/dL Hct 30.1 L (36.0-48.0) % MCV 94 (80-98) fL MCH 30 (27-31) pg MCHC 32 (32-36) % Plt Count 115 L (150-400) K/uL Sodium 141 (140-148) mmol/L Potassium 3.5 L (3.6-5.2) mmol/L Chloride 108 (100-108) mmol/L Carbon Dioxide 25 (21-32) mmol/L Anion Gap 11.5 (5.0-14.0) mmol/L BUN 18 D (7-18) mg/dL Creatinine 0.8 (0.6-1.0) mg/dL Est Cr Clr Drug Dosing 46.38 mL/min Estimated GFR (MDRD) > 60 (>60) Glucose 118 H (74-106) mg/dL Calcium 8.1 L (8.5-10.1) mg/dL Total Bilirubin 3.7 H (0.2-1.0) mg/dL Direct Bilirubin 1.72 H (0.0-0.2) mg/dL AST 136 H (15-37) U/L ALT 178 H (12-78) U/L Alkaline Phosphatase 88 (46-116) U/L Total Protein 5.4 L (6.4-8.2) g/dL Albumin 2.2 L (3.4-5.0) g/dL Globulin 3.2 (2.3-3.5) g/dL Albumin/Globulin Ratio 0.7 L (1.2-2.2) Thomas Results Last 24 Hrs: Microbiology 10/18/18 12:35 Gram Stain - Final Gallbladder Wound Culture - Preliminary NO GROWTH AFTER 2 DAYS 10/18/18 12:35 Anaerobic Culture - Preliminary Gallbladder NO GROWTH AFTER 1 DAY Med Orders - Current: Current Medications Acetaminophen (Tylenol) 650 mg PO Q4H PRN PRN Reason: Pain/Fever Last Admin: 10/17/18 16:29 Dose: 650 mg Hydrocodone Bitart/Acetaminophen ([place] 325-5 Mg) 1 - 2 tab PO Q4H PRN PRN Reason: Pain Last Admin: 10/19/18 03:23 Dose: 1 tab Amlodipine Besylate (Norvasc) 10 mg PO BEDTIME [facility] Piperacillin/Tazobactam/ (Dextrose 3.375 gm/ Premix) 50 mls @ 100 mls/hr IV Q6H [facility] Last Admin: 10/19/18 03:24 Dose: 100 mls/hr Potassium Chloride/Dextrose/Sod Cl (D5 1/2 Ns W/ 20 Meq/L Kcl) 1,000 mls @ 50 mls/hr IV ASDIRECTED [facility] Metoprolol Succinate (Toprol Xl) 100 mg PO DAILY [facility] Morphine Sulfate (Morphine) 2 mg IVPUSH Q4H PRN PRN Reason: Pain (moderate 4-6) Ondansetron HCl (Zofran) 4 mg IV Q6H PRN PRN Reason: Nausea/Vomiting Last Admin: 10/17/18 14:31 Dose: 4 mg Ondansetron HCl (Zofran Odt) 4 mg PO Q6H PRN PRN Reason: Nausea/Vomiting Last Admin: 10/18/18 09:26 Dose: 4 mg Sodium Chloride (Saline Flush) 10 ml FLUSH ASDIRECTED PRN PRN Reason: Keep Vein Open Last Admin: 10/17/18 01:46 Dose: 10 ml Discontinued Medications Amlodipine Besylate (Norvasc) 10 mg PO DAILY [facility] Last Admin: 10/19/18 08:53 Dose: Not Given Bupivacaine HCl (Marcaine 0.5%) Confirm Administered Dose 50 ml .ROUTE .STK-MED ONE Stop: 10/18/18 09:55 Last Admin: 10/18/18 11:50 Dose: 20 ml Dexamethasone (Dexamethasone) Confirm Administered Dose 4 mg .ROUTE .STK-MED ONE Stop: 10/18/18 11:08 Famotidine (Pepcid) 20 mg PO DAILY [facility] Last Admin: 10/17/18 09:48 Dose: Not Given Fentanyl (Sublimaze) 50 mcg IVPUSH ONETIME ONE Stop: 10/17/18 00:03 Last Admin: 10/17/18 00:57 Dose: 50 mcg Fentanyl (Sublimaze) 50 mcg IVPUSH Q6H PRN PRN Reason: Pain (severe 7-10) Last Admin: 10/17/18 04:10 Dose: 50 mcg Fentanyl (Sublimaze) Confirm Administered Dose 250 mcg .ROUTE .STK-MED ONE Stop: 10/18/18 11:08 Glycopyrrolate (Robinul) Confirm Administered Dose 1 mg .ROUTE .STK-MED ONE Stop: 10/18/18 11:08 Lactated Ringer's (Ringers, Lactated) 1,000 mls @ 500 mls/hr IV ASDIRECTED [facility] Last Admin: 10/17/18 01:01 Dose: 500 mls/hr Sodium Chloride (Normal Saline) 74 mls @ 0 mls/hr IV ASDIRECTED [facility] Last Admin: 10/17/18 01:46 Dose: 3 mls/hr Sodium Chloride (Normal Saline) 1,000 mls @ 100 mls/hr IV ASDIRECTED [facility] Last Admin: 10/19/18 08:36 Dose: 150 mls/hr Potassium Chloride 20 meq/Lidocaine HCl 2 ml/ Sodium Chloride 112 mls @ 50 mls/ hr IV Q2H [facility] Stop: 10/17/18 19:59 Last Admin: 10/17/18 18:22 Dose: 50 mls/hr Iopamidol (Isovue-300 (61%)) 112 ml IV . DIRECTED [facility] Last Admin: 10/17/18 01:45 Dose: 112 ml Lidocaine/Epinephrine (Xylocaine 1% With Epinephrine 1:100,000) Confirm Administered Dose 50 ml .ROUTE .STK-MED ONE Stop: 10/18/18 09:55 Last Admin: 10/18/18 11:51 Dose: 20 ml Naloxone HCl (Narcan) Confirm Administered Dose 0.4 mg .ROUTE .STK-MED ONE Stop: 10/18/18 12:37 Neostigmine Methylsulfate (Neostigmine) Confirm Administered Dose 5 mg .ROUTE .STK-MED ONE Stop: 10/18/18 11:08 Metoprolol Succinate 100mg Tab Pt Own* * 100 each PO DAILY [facility] Last Admin: 10/19/18 08:53 Dose: Not Given Ondansetron HCl (Zofran) 4 mg IVPUSH ONETIME ONE Stop: 10/17/18 00:03 Last Admin: 10/17/18 00:56 Dose: 4 mg Ondansetron HCl (Zofran) Confirm Administered Dose 4 mg .ROUTE .STK-MED ONE Stop: 10/18/18 11:08 Pantoprazole Sodium (Protonix Iv) 40 mg IVPUSH ONETIME ONE Stop: 10/17/18 15:01 Last Admin: 10/17/18 14:52 Dose: 40 mg Propofol (Diprivan 20 Ml) Confirm Administered Dose 200 mg .ROUTE .STK-MED ONE Stop: 10/18/18 11:08 Rocuronium [place] (Zemuron) Confirm Administered Dose 50 mg .ROUTE .STK-MED ONE Stop: 10/18/18 11:08 Sodium Chloride (Saline Flush) 10 ml FLUSH ONETIME ONE Stop: 10/17/18 00:15 Last Admin: 10/17/18 01:53 Dose: Not Given - Exam Wound/Incisions: Healing Well, Dressing Dry and Intact, No Drainage (REEMA output 135 ml's since surgery. ) Quality Assessment: Supplemental Oxygen, DVT Prophylaxis General: Alert, Oriented, Cooperative, No Acute Distress (Feels much better than preoperatively) Lungs: Clear to Auscultation, Normal Respiratory Effort Cardiovascular: Regular Rate, Regular Rhythm GI/Abdominal Exam: Soft, Non-Tender, No Organomegaly, No Distention, No Abnormal Bruit, Abnormal Bowel Sounds (Hypoactive bowel sounds. ). No: Guarding , Rigid, Rebound, Tender Extremities: Normal Inspection Skin: Warm, Dry, Intact Neurological: No New Focal Deficit Psy/Mental Status: Alert, Normal Affect, Normal Mood - Problem List & Annotations (1) Cholecystitis, acute with cholelithiasis SNOMED Code(s): 70955363 Code(s): K80.00 - CALCULUS OF GALLBLADDER W ACUTE CHOLECYST W/O OBSTRUCTION Status: Acute Current Visit: Yes - Problem List Review Problem List Initiated/Reviewed/Updated: Yes - My Orders Last 24 Hours: Active Orders 24 hr Category Date Time Status Admission Status [Patient Status] [ADT] Routine ADT 10/18/18 11:45 Active Antiembolic Devices [RC] .Routine Care 10/18/18 12:57 Active Communication Order [RC] ROUTINE Care 10/18/18 12:54 Active Drain Management [RC] Q12H Care 10/18/18 12:54 Active Incentive Spirometry [RT Incentive Spirometry] [RC] Care 10/18/18 12:56 Active Q1HWA Notify Provider Consults [RC] ASDIRECTED Care 10/18/18 12:21 Active Consult to Physician [CONS] Routine Cons 10/18/18 12:20 Ordered Clear Liquid Diet [DIET] Diet 10/18/18 Dinner Active Regular Diet [DIET] Diet 10/19/18 Lunch Ordered OR [id number] [CR] Routine Exams 10/18/18 11:06 Taken CBC W/O DIFF,HEMOGRAM [HEME] DAILY Lab 10/20/18 05:11 Ordered CBC W/O DIFF,HEMOGRAM [HEME] DAILY Lab 10/21/18 05:11 Ordered CBC W/O DIFF,HEMOGRAM [HEME] DAILY Lab 10/22/18 05:11 Ordered CBC W/O DIFF,HEMOGRAM [HEME] DAILY Lab 10/23/18 05:11 Ordered COMPREHENSIVE METABOLIC PN,CMP [CHEM] DAILY Lab 10/20/18 05:11 Ordered COMPREHENSIVE METABOLIC PN,CMP [CHEM] DAILY Lab 10/21/18 05:11 Ordered COMPREHENSIVE METABOLIC PN,CMP [CHEM] DAILY Lab 10/22/18 05:11 Ordered COMPREHENSIVE METABOLIC PN,CMP [CHEM] DAILY Lab 10/23/18 05:11 Ordered COMPREHENSIVE METABOLIC PN,CMP [CHEM] DAILY Lab 10/24/18 05:11 Ordered CULTURE ANAEROBIC [RM] Routine Lab 10/18/18 12:35 Results CULTURE WOUND + SMEAR [RM] Routine Lab 10/18/18 12:35 Results Acetaminophen/HYDROcodone [[place] 325-5 MG] Med 10/18/18 14:39 Active 1 - 2 tab PO Q4H PRN D5 1/2 NS w/ 20 mEq/L KCl 1,000 ml Med 10/19/18 10:00 Ordered IV ASDIRECTED Metoprolol Succinate [Toprol XL] Med 10/19/18 10:00 Active 100 mg PO DAILY Piperacillin/Tazobactam/Dext [Zosyn in Dextrose Iso- Med 10/18/18 10:00 Active Osmotic 3.375 GM] 3.375 gm Premix Bag 1 bag IV Q6H amLODIPine [Norvasc] Med 10/19/18 21:00 Active 10 mg PO BEDTIME Sequential Compression Device [OM.PC] Routine Oth 10/18/18 12:57 Ordered Medication Orders Acetaminophen (Tylenol) 650 mg PO Q4H PRN PRN Reason: Pain/Fever Last Admin: 10/17/18 16:29 Dose: 650 mg Hydrocodone Bitart/Acetaminophen ([place] 325-5 Mg) 1 - 2 tab PO Q4H PRN PRN Reason: Pain Last Admin: 10/19/18 03:23 Dose: 1 tab Admin: 10/18/18 19:09 Dose: 1 tab Admin: 10/18/18 14:53 Dose: 1 tab Amlodipine Besylate (Norvasc) 10 mg PO BEDTIME [facility] Piperacillin/Tazobactam/ (Dextrose 3.375 gm/ Premix) 50 mls @ 100 mls/hr IV Q6H [facility] Last Admin: 10/19/18 03:24 Dose: 100 mls/hr Admin: 10/18/18 21:20 Dose: 100 mls/hr Admin: 10/18/18 15:55 Dose: 100 mls/hr Admin: 10/18/18 10:19 Dose: 100 mls/hr Potassium Chloride/Dextrose/Sod Cl (D5 1/2 Ns W/ 20 Meq/L Kcl) 1,000 mls @ 50 mls/hr IV ASDIRECTED [facility] Metoprolol Succinate (Toprol Xl) 100 mg PO DAILY [facility] Morphine Sulfate (Morphine) 2 mg IVPUSH Q4H PRN PRN Reason: Pain (moderate 4-6) Ondansetron HCl (Zofran) 4 mg IV Q6H PRN PRN Reason: Nausea/Vomiting Last Admin: 10/17/18 14:31 Dose: 4 mg Ondansetron HCl (Zofran Odt) 4 mg PO Q6H PRN PRN Reason: Nausea/Vomiting Last Admin: 10/18/18 09:26 Dose: 4 mg Sodium Chloride (Saline Flush) 10 ml FLUSH ASDIRECTED PRN PRN Reason: Keep Vein Open Last Admin: 10/17/18 01:46 Dose: 10 ml Admin: 10/17/18 01:01 Dose: 10 ml - Assessment Assessment (Free Text/Narrative):: TJennifer cranei is up to 3.7. She looks quite well, happy. - Plan Plan (Free Text/Narrative):: Regular diet. Decrease IV. Change IV to D5 1/2 NS with 20 meq/Lit KCl. Watch LFT's.
--- NOTE | 2018-10-19 11:57 | PCM.PN ---
- General Info Date of Service: 10/19/18 Subjective Update: There were no acute events overnight. Cholecystectomy was uncomplicated. Abdominal pain is much better today. No nausea or vomiting. Tolerated clear liquids and is advancing diet today. AST and ALT are better this morning but bilirubin is higher. No fevers. Functional Status: Reports: Pain Controlled, Tolerating Diet - Review of Systems General: Denies: Fever - Patient Data Vitals - Most Recent: Last Vital Signs Temp 36.4 C 10/19/18 11:00 Pulse 68 10/19/18 11:27 Resp 16 10/19/18 11:00 BP 111/57 L 10/19/18 11:27 Pulse Ox 88 L 10/19/18 11:00 Weight - Most Recent: 76.929 kg I&O - Last 24 Hours: Intake & Output 10/18/18 10/19/18 10/19/18 22:59 06:59 14:59 Intake Total 704 1254 470 Output Total 30 305 Balance 674 949 470 Lab Results Last 24 Hours: Laboratory Results - last 24 hr 10/19/18 10/19/18 Range/Units 05:00 05:00 WBC 9.7 (4.5-11.0) K/uL RBC 3.19 L (3.30-5.50) M/uL Hgb 9.6 L (12.0-15.0) g/dL Hct 30.1 L (36.0-48.0) % MCV 94 (80-98) fL MCH 30 (27-31) pg MCHC 32 (32-36) % Plt Count 115 L (150-400) K/uL Sodium 141 (140-148) mmol/L Potassium 3.5 L (3.6-5.2) mmol/L Chloride 108 (100-108) mmol/L Carbon Dioxide 25 (21-32) mmol/L Anion Gap 11.5 (5.0-14.0) mmol/L BUN 18 D (7-18) mg/dL Creatinine 0.8 (0.6-1.0) mg/dL Est Cr Clr Drug Dosing 46.38 mL/min Estimated GFR (MDRD) > 60 (>60) Glucose 118 H (74-106) mg/dL Calcium 8.1 L (8.5-10.1) mg/dL Total Bilirubin 3.7 H (0.2-1.0) mg/dL AST 136 H (15-37) U/L ALT 178 H (12-78) U/L Alkaline Phosphatase 88 (46-116) U/L Total Protein 5.4 L (6.4-8.2) g/dL Albumin 2.2 L (3.4-5.0) g/dL Globulin 3.2 (2.3-3.5) g/dL Albumin/Globulin Ratio 0.7 L (1.2-2.2) Thomas Results Last 24 Hours: Microbiology 10/18/18 12:35 Gram Stain - Final Gallbladder Wound Culture - Preliminary NO GROWTH AFTER 2 DAYS 10/18/18 12:35 Anaerobic Culture - Preliminary Gallbladder NO GROWTH AFTER 1 DAY Med Orders - Current: Current Medications Acetaminophen (Tylenol) 650 mg PO Q4H PRN PRN Reason: Pain/Fever Last Admin: 10/17/18 16:29 Dose: 650 mg Hydrocodone Bitart/Acetaminophen ([place] 325-5 Mg) 1 - 2 tab PO Q4H PRN PRN Reason: Pain Last Admin: 10/19/18 03:23 Dose: 1 tab Amlodipine Besylate (Norvasc) 10 mg PO BEDTIME [facility] Piperacillin/Tazobactam/ (Dextrose 3.375 gm/ Premix) 50 mls @ 100 mls/hr IV Q6H [facility] Last Admin: 10/19/18 10:03 Dose: 100 mls/hr Potassium Chloride/Dextrose/Sod Cl (D5 1/2 Ns W/ 20 Meq/L Kcl) 1,000 mls @ 50 mls/hr IV ASDIRECTED [facility] Last Admin: 10/19/18 11:52 Dose: 50 mls/hr Metoprolol Succinate (Toprol Xl) 100 mg PO DAILY [facility] Last Admin: 10/19/18 11:27 Dose: 100 mg Morphine Sulfate (Morphine) 2 mg IVPUSH Q4H PRN PRN Reason: Pain (moderate 4-6) Ondansetron HCl (Zofran) 4 mg IV Q6H PRN PRN Reason: Nausea/Vomiting Last Admin: 10/17/18 14:31 Dose: 4 mg Ondansetron HCl (Zofran Odt) 4 mg PO Q6H PRN PRN Reason: Nausea/Vomiting Last Admin: 10/18/18 09:26 Dose: 4 mg Sodium Chloride (Saline Flush) 10 ml FLUSH ASDIRECTED PRN PRN Reason: Keep Vein Open Last Admin: 10/17/18 01:46 Dose: 10 ml Discontinued Medications Amlodipine Besylate (Norvasc) 10 mg PO DAILY [facility] Last Admin: 10/19/18 08:53 Dose: Not Given Bupivacaine HCl (Marcaine 0.5%) Confirm Administered Dose 50 ml .ROUTE .STK-MED ONE Stop: 10/18/18 09:55 Last Admin: 10/18/18 11:50 Dose: 20 ml Dexamethasone (Dexamethasone) Confirm Administered Dose 4 mg .ROUTE .STK-MED ONE Stop: 10/18/18 11:08 Famotidine (Pepcid) 20 mg PO DAILY [facility] Last Admin: 10/17/18 09:48 Dose: Not Given Fentanyl (Sublimaze) 50 mcg IVPUSH ONETIME ONE Stop: 10/17/18 00:03 Last Admin: 10/17/18 00:57 Dose: 50 mcg Fentanyl (Sublimaze) 50 mcg IVPUSH Q6H PRN PRN Reason: Pain (severe 7-10) Last Admin: 10/17/18 04:10 Dose: 50 mcg Fentanyl (Sublimaze) Confirm Administered Dose 250 mcg .ROUTE .STK-MED ONE Stop: 10/18/18 11:08 Glycopyrrolate (Robinul) Confirm Administered Dose 1 mg .ROUTE .STK-MED ONE Stop: 10/18/18 11:08 Lactated Ringer's (Ringers, Lactated) 1,000 mls @ 500 mls/hr IV ASDIRECTED [facility] Last Admin: 10/17/18 01:01 Dose: 500 mls/hr Sodium Chloride (Normal Saline) 74 mls @ 0 mls/hr IV ASDIRECTED [facility] Last Admin: 10/17/18 01:46 Dose: 3 mls/hr Sodium Chloride (Normal Saline) 1,000 mls @ 100 mls/hr IV ASDIRECTED [facility] Last Admin: 10/19/18 08:36 Dose: 150 mls/hr Potassium Chloride 20 meq/Lidocaine HCl 2 ml/ Sodium Chloride 112 mls @ 50 mls/ hr IV Q2H [facility] Stop: 10/17/18 19:59 Last Admin: 10/17/18 18:22 Dose: 50 mls/hr Iopamidol (Isovue-300 (61%)) 112 ml IV . DIRECTED [facility] Last Admin: 10/17/18 01:45 Dose: 112 ml Lidocaine/Epinephrine (Xylocaine 1% With Epinephrine 1:100,000) Confirm Administered Dose 50 ml .ROUTE .STK-MED ONE Stop: 10/18/18 09:55 Last Admin: 10/18/18 11:51 Dose: 20 ml Naloxone HCl (Narcan) Confirm Administered Dose 0.4 mg .ROUTE .STK-MED ONE Stop: 10/18/18 12:37 Neostigmine Methylsulfate (Neostigmine) Confirm Administered Dose 5 mg .ROUTE .STK-MED ONE Stop: 10/18/18 11:08 Metoprolol Succinate 100mg Tab Pt Own* * 100 each PO DAILY [facility] Last Admin: 10/19/18 08:53 Dose: Not Given Ondansetron HCl (Zofran) 4 mg IVPUSH ONETIME ONE Stop: 10/17/18 00:03 Last Admin: 10/17/18 00:56 Dose: 4 mg Ondansetron HCl (Zofran) Confirm Administered Dose 4 mg .ROUTE .STK-MED ONE Stop: 10/18/18 11:08 Pantoprazole Sodium (Protonix Iv) 40 mg IVPUSH ONETIME ONE Stop: 10/17/18 15:01 Last Admin: 10/17/18 14:52 Dose: 40 mg Propofol (Diprivan 20 Ml) Confirm Administered Dose 200 mg .ROUTE .STK-MED ONE Stop: 10/18/18 11:08 Rocuronium [place] (Zemuron) Confirm Administered Dose 50 mg .ROUTE .STK-MED ONE Stop: 10/18/18 11:08 Sodium Chloride (Saline Flush) 10 ml FLUSH ONETIME ONE Stop: 10/17/18 00:15 Last Admin: 10/17/18 01:53 Dose: Not Given - Exam Quality Assessment: No: Supplemental Oxygen General: Alert, Oriented, Cooperative, No Acute Distress Lungs: Normal Respiratory Effort GI/Abdominal Exam: No Distention Extremities: No Pedal Edema Psy/Mental Status: Alert, Normal Affect - Problem List Review Problem List Initiated/Reviewed/Updated: Yes - My Orders Last 24 Hours: My Active Orders 10/18/18 11:45 Admission Status [Patient Status] [ADT] Routine 10/18/18 12:20 Consult to Physician [CONS] Routine 10/18/18 12:21 Notify Provider Consults [RC] ASDIRECTED - Plan Plan:: ASSESSMENT AND PLAN - Acute cholecystitis with cholelithiasis - initial CT showed dilation of the biliary duct. No evidence for stone noted on MRCP. Status post cholecystectomy . Clinically doing well. Bilirubin level higher today than yesterday. -Continue antibiotics while hospitalized -Gentle IV fluids -Pain control -Repeat labs in the morning Essential hypertension - continue home medications Maintenance issues - - DVT prophylaxis - mechanical - GI prophylaxis - not indicated - Nutrition - advance as tolerated Disposition - I would anticipate discharge home after the hospital stay, likely tomorrow if stable overnight Vazquez Cisneros M.D.
[2018-10-19] MEDS: Acetaminophen 325 MG Tab PO PRN (19:31)
[2018-10-19] MEDS ORDERED: amLODIPine 10 MG Tab**POM PO SCH (21:00)
[2018-10-20] MEDS: Piperacillin/Tazobactam/Dext 3.375 GM in Premix Bag 1 BAG IV SCH ×2 (05:02→10:27)
[2018-10-20] MEDS ORDERED: METOPROLOL 100 MG PO SCH (09:00)
--- NOTE | 2018-10-20 10:47 | PCM.DCSUM1 ---
Discharge Summary - Hospital Course Free Text/Narrative:: This 78 year old white female was admitted to the Hospitalist service three days ago with abdominal pain and a dilated common bile duct on CT scan. An MRCP showed cholelithiasis, normal appearing duct with no stones. She was scheduled for surgery tomorrow, but was in so much pain I was asked to operate on her. She was taken to the OR two days ago for a laparoscopic cholecystectomy with intraoperative cholangiogram. She was found to have acute cholecystitis. The cholangiogram showed no obvious choledocholithiasis. When opening up the cystic duct a stone fell out. Five more cystic duct stones were milked out of the cystic duct. A REEMA drain was left in place. She was treated at the time of admission with Piperacillin. Her bilirubin on the first post operative day increased from 2.8 on the day of surgery to 3.7. Today it has fallen to 1.5. Gram stain and gall bladder cultures are negative. She is eating well, feels well, and wants to go home. Her REEMA drain will be removed and she is discharged to home. Brief History: See above narrative. Diagnosis: Stroke: No - Discharge Data Discharge Date: 10/20/18 Discharge Disposition: Home, Self-Care 01 Condition: Good - Discharge Diagnosis/Problem(s) (1) Cholecystitis, acute with cholelithiasis SNOMED Code(s): 60926247 ICD Code: K80.00 - CALCULUS OF GALLBLADDER W ACUTE CHOLECYST W/O OBSTRUCTION Status: Acute Current Visit: Yes - Patient Summary/Data Operative Procedure(s) Performed: Laparoscopic cholecystectomy with intraoperative cholangiogram. Consults: Consultations 10/18/18 12:20 Consult to Physician [CONS] Routine Consulting Provider: Michael Najera Call Completed to Consulting Physician: Yes Reason for Consult: cholecysitis Person Notified: BDB Date Notified: 10/18/18 - Patient Instructions Diet: Usual Diet as Tolerated Activity: As Tolerated (Avoid activity that causes discomfort) Driving: Do Not Drive (For two weeks. ) Showering/Bathing: Shower in AM Notify Provider of: Fever, Increased Pain, Swelling and Redness, Drainage, Nausea and/or Vomiting - Discharge Plan *PRESCRIPTION DRUG MONITORING PROGRAM REVIEWED*: No *COPY OF PRESCRIPTION DRUG MONITORING REPORT IN PATIENT CHARAN: No Home Medications: Home Meds Aspirin 81 mg PO DAILY 10/16/18 [History] Famotidine [Pepcid] 20 mg PO DAILY 10/16/18 [History] Metoprolol Succinate 100 mg PO DAILY 10/16/18 [History] amLODIPine Besylate [Amlodipine Besylate] 10 mg PO BEDTIME 10/16/18 [History] Calcium Carbonate/Vitamin D3 [Calcium 500 + Vit D 400] 1 each PO BID 10/17/18 [ History] Patient's Own Medication [Ptom] 0 each PO DAILY each 10/20/18 [Rx] Forms: ED Department Discharge Referrals: Brook Wooadrd MD [Primary Care Provider] - Michael Najera MD [Physician] - (See me in [place] in about two weeks. ) - Discharge Summary/Plan Comment DC Time >30 min.: Yes - General Info Date of Service: 10/20/18 Functional Status: Reports: Pain Controlled, Tolerating Diet, Ambulating, Urinating, Incentive Spirometry - Review of Systems General: Reports: No Symptoms HEENT: Reports: No Symptoms Pulmonary: Reports: No Symptoms Cardiovascular: Reports: No Symptoms Gastrointestinal: Reports: No Symptoms Genitourinary: Reports: No Symptoms Musculoskeletal: Reports: No Symptoms Skin: Reports: No Symptoms Neurological: Reports: No Symptoms Psychiatric: Reports: No Symptoms - Patient Data Vitals - Most Recent: Last Vital Signs Temp 97 F 10/20/18 08:02 Pulse 67 10/20/18 08:02 Resp 16 10/20/18 08:02 BP 135/66 10/20/18 08:02 Pulse Ox 92 L 10/20/18 08:02 Weight - Most Recent: 169 lb 9.59 oz I&O - Last 24 hours: Intake & Output 10/19/18 10/20/18 10/20/18 22:59 06:59 14:59 Intake Total 1140 592 Output Total 395 640 Balance 745 -48 Lab Results - Last 24 hrs: Laboratory Results - last 24 hr 10/20/18 10/20/18 Range/Units 04:59 04:59 WBC 8.3 (4.5-11.0) K/uL RBC 3.26 L (3.30-5.50) M/uL Hgb 9.8 L (12.0-15.0) g/dL Hct 30.8 L (36.0-48.0) % MCV 95 (80-98) fL MCH 30 (27-31) pg MCHC 32 (32-36) % Plt Count 128 L (150-400) K/uL Sodium 140 (140-148) mmol/L Potassium 3.6 (3.6-5.2) mmol/L Chloride 106 (100-108) mmol/L Carbon Dioxide 27 (21-32) mmol/L Anion Gap 6.9 (5.0-14.0) mmol/L BUN 15 (7-18) mg/dL Creatinine 0.8 (0.6-1.0) mg/dL Est Cr Clr Drug Dosing 46.38 mL/min Estimated GFR (MDRD) > 60 (>60) Glucose 110 H (74-106) mg/dL Calcium 8.3 L (8.5-10.1) mg/dL Total Bilirubin 1.5 H D (0.2-1.0) mg/dL AST 133 H (15-37) U/L ALT 187 H (12-78) U/L Alkaline Phosphatase 94 (46-116) U/L Total Protein 5.6 L (6.4-8.2) g/dL Albumin 2.2 L (3.4-5.0) g/dL Globulin 3.4 (2.3-3.5) g/dL Albumin/Globulin Ratio 0.7 L (1.2-2.2) COURTNEY Results - Last 24 hrs: Microbiology 10/18/18 12:35 Gram Stain - Final Gallbladder Wound Culture - Preliminary NO GROWTH AFTER 2 DAYS 10/18/18 12:35 Anaerobic Culture - Preliminary Gallbladder NO GROWTH AFTER 1 DAY Med Orders - Current: Current Medications Acetaminophen (Tylenol) 650 mg PO Q4H PRN PRN Reason: Pain/Fever Last Admin: 10/19/18 19:31 Dose: 650 mg Hydrocodone Bitart/Acetaminophen ([place] 325-5 Mg) 1 - 2 tab PO Q4H PRN PRN Reason: Pain Last Admin: 10/19/18 03:23 Dose: 1 tab Amlodipine Besylate (Norvasc) 10 mg PO BEDTIME [facility] Last Admin: 10/19/18 21:18 Dose: 10 mg Piperacillin/Tazobactam/ (Dextrose 3.375 gm/ Premix) 50 mls @ 100 mls/hr IV Q6H [facility] Last Admin: 10/20/18 10:27 Dose: 100 mls/hr Potassium Chloride/Dextrose/Sod Cl (D5 1/2 Ns W/ 20 Meq/L Kcl) 1,000 mls @ 50 mls/hr IV ASDIRECTED [facility] Last Admin: 10/19/18 11:52 Dose: 50 mls/hr Morphine Sulfate (Morphine) 2 mg IVPUSH Q4H PRN PRN Reason: Pain (moderate 4-6) Ondansetron HCl (Zofran) 4 mg IV Q6H PRN PRN Reason: Nausea/Vomiting Last Admin: 10/17/18 14:31 Dose: 4 mg Ondansetron HCl (Zofran Odt) 4 mg PO Q6H PRN PRN Reason: Nausea/Vomiting Last Admin: 10/18/18 09:26 Dose: 4 mg Metoprolol Er 100mg ((Ptom)) 0 each PO DAILY [facility] Last Admin: 10/20/18 09:02 Dose: 1 each Sodium Chloride (Saline Flush) 10 ml FLUSH ASDIRECTED PRN PRN Reason: Keep Vein Open Last Admin: 10/17/18 01:46 Dose: 10 ml Discontinued Medications Amlodipine Besylate (Norvasc) 10 mg PO DAILY [facility] Last Admin: 10/19/18 08:53 Dose: Not Given Bupivacaine HCl (Marcaine 0.5%) Confirm Administered Dose 50 ml .ROUTE .STK-MED ONE Stop: 10/18/18 09:55 Last Admin: 10/18/18 11:50 Dose: 20 ml Dexamethasone (Dexamethasone) Confirm Administered Dose 4 mg .ROUTE .STK-MED ONE Stop: 10/18/18 11:08 Famotidine (Pepcid) 20 mg PO DAILY [facility] Last Admin: 10/17/18 09:48 Dose: Not Given Fentanyl (Sublimaze) 50 mcg IVPUSH ONETIME ONE Stop: 10/17/18 00:03 Last Admin: 10/17/18 00:57 Dose: 50 mcg Fentanyl (Sublimaze) 50 mcg IVPUSH Q6H PRN PRN Reason: Pain (severe 7-10) Last Admin: 10/17/18 04:10 Dose: 50 mcg Fentanyl (Sublimaze) Confirm Administered Dose 250 mcg .ROUTE .STK-MED ONE Stop: 10/18/18 11:08 Glycopyrrolate (Robinul) Confirm Administered Dose 1 mg .ROUTE .STK-MED ONE Stop: 10/18/18 11:08 Lactated Ringer's (Ringers, Lactated) 1,000 mls @ 500 mls/hr IV ASDIRECTED [facility] Last Admin: 10/17/18 01:01 Dose: 500 mls/hr Sodium Chloride (Normal Saline) 74 mls @ 0 mls/hr IV ASDIRECTED [facility] Last Admin: 10/17/18 01:46 Dose: 3 mls/hr Sodium Chloride (Normal Saline) 1,000 mls @ 100 mls/hr IV ASDIRECTED [facility] Last Admin: 10/19/18 08:36 Dose: 150 mls/hr Potassium Chloride 20 meq/Lidocaine HCl 2 ml/ Sodium Chloride 112 mls @ 50 mls/ hr IV Q2H [facility] Stop: 10/17/18 19:59 Last Admin: 10/17/18 18:22 Dose: 50 mls/hr Iopamidol (Isovue-300 (61%)) 112 ml IV . DIRECTED [facility] Last Admin: 10/17/18 01:45 Dose: 112 ml Lidocaine/Epinephrine (Xylocaine 1% With Epinephrine 1:100,000) Confirm Administered Dose 50 ml .ROUTE .STK-MED ONE Stop: 10/18/18 09:55 Last Admin: 10/18/18 11:51 Dose: 20 ml Metoprolol Succinate (Toprol Xl) 100 mg PO DAILY [facility] Last Admin: 10/19/18 11:27 Dose: 100 mg Naloxone HCl (Narcan) Confirm Administered Dose 0.4 mg .ROUTE .STK-MED ONE Stop: 10/18/18 12:37 Neostigmine Methylsulfate (Neostigmine) Confirm Administered Dose 5 mg .ROUTE .STK-MED ONE Stop: 10/18/18 11:08 Metoprolol Succinate 100mg Tab Pt Own* * 100 each PO DAILY [facility] Last Admin: 10/19/18 08:53 Dose: Not Given Ondansetron HCl (Zofran) 4 mg IVPUSH ONETIME ONE Stop: 10/17/18 00:03 Last Admin: 10/17/18 00:56 Dose: 4 mg Ondansetron HCl (Zofran) Confirm Administered Dose 4 mg .ROUTE .STK-MED ONE Stop: 10/18/18 11:08 Pantoprazole Sodium (Protonix Iv) 40 mg IVPUSH ONETIME ONE Stop: 10/17/18 15:01 Last Admin: 10/17/18 14:52 Dose: 40 mg Propofol (Diprivan 20 Ml) Confirm Administered Dose 200 mg .ROUTE .STK-MED ONE Stop: 10/18/18 11:08 Rocuronium [place] (Zemuron) Confirm Administered Dose 50 mg .ROUTE .STK-MED ONE Stop: 10/18/18 11:08 Sodium Chloride (Saline Flush) 10 ml FLUSH ONETIME ONE Stop: 10/17/18 00:15 Last Admin: 10/17/18 01:53 Dose: Not Given - Exam Quality Assessment: Reports: Supplemental Oxygen, DVT Prophylaxis General: Reports: Alert, Oriented, Cooperative, No Acute Distress Lungs: Reports: Clear to Auscultation, Normal Respiratory Effort Cardiovascular: Reports: Regular Rate, Regular Rhythm GI/Abdominal Exam: Normal Bowel Sounds, Soft, Non-Tender, Other (Incisions appear well. ) Back Exam: Reports: Normal Inspection Extremities: Normal Inspection Skin: Reports: Warm, Dry, Intact Wound/Incisions: Reports: Healing Well Neurological: Reports: No New Focal Deficit Psy/Mental Status: Reports: Alert, Normal Affect, Normal Mood
--- NOTE | 2018-10-21 07:25 | CRLMR ---
Final Report: INDICATION: Right upper quadrant pain TECHNIQUE: CT Abdomen and pelvis with i.v. contrast. Coronal and sagittal reformats were obtained. CONTRAST: 112 mL Isovue 300 COMPARISON: None FINDINGS: Lower chest: Unremarkable. Liver: Unremarkable. Spleen: Unremarkable. Pancreas: Unremarkable. Gallbladder: Unremarkable. Mild intrahepatic biliary ductal dilatation is seen. The common bile duct measures 9 mm. Kidney: A small exophytic lesion of indeterminate density seen in the midzone of the left kidney measuring 1.3 cm. There is a 1.6 cm cyst in the mid zone of the left kidney. The right kidney is unremarkable in appearance. Adrenal: Unremarkable. Bowel: Small sliding type esophageal hiatal hernia (type I) is present. The appendix cannot be identified but there are no inflammatory changes noted in the right lower quadrant. Vascular: Unremarkable. Lymph: Unremarkable. Peritoneum: Unremarkable. No pneumoperitoneum is seen. No significant ascites is noted. Pelvis: Unremarkable. Soft tissue: Unremarkable. Bone: Grade 1 anterolisthesis of L4-5 is noted. IMPRESSIONS: 1. A small exophytic lesion of indeterminate density seen in the midzone of the left kidney measuring 1.3 cm. Assessment and follow-up with outpatient renal ultrasound or MRI recommended. 2. Mild intrahepatic biliary ductal dilatation is seen. The common bile duct measures 9 mm. If there is clinical evidence of biliary obstruction, further evaluation with MRCP is recommended. Dictated by Markell Layne MD @ 10/17/2018 1:52:57 AM Please note that all CT scans at this facility use dose modulation, iterative reconstruction, and/or weight-based dosing when appropriate to reduce radiation dose to as low as reasonably achievable. Dictated by: Markell Layne MD @ 10/17/2018 01:53:15 Signed by: Markell Layne MD @10/17/2018 1:53:15 AM (Electronic Signature MTDD
--- NOTE | 2018-10-21 08:21 | CRLMR ---
INDICATION: Dilated bile duct on the CT; further assessment. COMPARISON: CT abdomen and pelvis same date. TECHNIQUE: MRCP; noncontrast MR through the abdomen. FINDINGS: Cholelithiasis. No focal hepatic or splenic pathology. No pancreatic pathology. No evidence of biliary duct dilatation. No filling defects identified within the common bile duct. 1.9 cm lesion lower pole left kidney with increased signal on the T2 haste imaging probably indicating a cyst. No adrenal pathology. No obstructive uropathy or perinephric pathology. No retroperitoneal lymphadenopathy. No evidence of abdominal ascites. Impression: 1. No evidence of common duct stone. 2. Cholelithiasis. 3. 1.9 cm lesion left kidney lower pole; probably cyst. Dictated by Esperanza Montiel MD @ Oct 17 2018 12:38PM Signed by: Esperanza Montiel MD @10/17/2018 12:46:41 PM (Electronic Signature) MTDD
--- NOTE | 2018-10-21 11:35 | OR ---
DATE OF PROCEDURE: 10/18/2018 PREOPERATIVE DIAGNOSES: Acute cholecystitis with cholelithiasis and abnormal liver function tests. POSTOPERATIVE DIAGNOSIS: Acute cholecystitis with cholelithiasis and abnormal liver function tests. PROCEDURE: Laparoscopic cholecystectomy with intraoperative cholangiogram. SURGEON: Michael Najera MD ANESTHESIA: General endotracheal. INDICATION: This 78-year-old white female was admitted with upper abdominal pain. CT scan showed a dilated common duct at 9 mm. MRCP was then done, and this showed the duct to be of normal caliber and no stones in the duct; however, it did show cholelithiasis. Her liver functions are slightly abnormal. Bilirubin is over 2. AST and ALT are elevated. Interestingly, her alkaline phosphatase is normal. Amylase is normal. She is quite tender in the epigastrium and right upper quadrant. A request is made for a laparoscopic cholecystectomy with intraoperative cholangiogram. I counseled her for the procedure, including risks and alternatives, and she gave her informed consent to proceed. Prior abdominal surgery consists of an appendectomy at a young age. This was done through a paramedian incision. DESCRIPTION OF PROCEDURE: After adequate general endotracheal anesthesia was obtained, the patient's abdomen was prepped and draped in the usual sterile fashion. Time- out was held. An infraumbilical semicircular incision was made. Under direct vision, a 12-mm port was introduced in the abdomen through this incision using the Optiview technique. The camera was introduced into the abdomen and the abdomen was insufflated to a pressure of 15 mmHg with carbon dioxide. No evidence of intraabdominal injury was seen. Under direct vision, a 12-mm port was placed in the epigastrium. There were omental adhesions in the right lower quadrant and the midline. We bluntly dissected these omental adhesions from the anterior abdominal wall. We then placed a 5-mm port in the right lower quadrant. The gallbladder was examined and noted to be a reddish monson. It was quite tense. All this is consistent with acute cholecystitis. The cystic duct and arteries were dissected free. A clip was placed up on the cystic duct at the gallbladder. A small ductotomy was made next to this, and cholangiograms were performed by injecting 15 and then 15 mL of half- strength contrast material. This showed no obvious filling defect, good flow into the duodenum, and good retrograde flow into the hepatic radicles. It was not an obviously enlarged duct. The cholangiocatheter was removed. The cystic duct was then clipped 3 times adjacent to the ductotomy and divided at the ductotomy site. The cystic artery was clipped once distally up on the gallbladder and 3 times proximally and divided between clips. The gallbladder was then dissected free from the gallbladder bed using Bovie electrocautery. The gallbladder was opened during this process. There were multiple stones released. We removed most of them from the abdomen. The gallbladder was then placed in a sample retrieval bag. Multiple stones were placed in the bag. The bag was elevated up through the anterior abdominal wall via the epigastric port site. It was cultured and delivered from the field. The epigastric port was reintroduced back into the abdomen. The gallbladder bed was irrigated and suctioned dry. All looked well. A Bennett-Krause drain was obtained and brought out through the 5-mm port site in the right lower quadrant. This was placed up in the area of the gallbladder bed. The fascial closure device was used to place a 0 Vicryl stitch on the epigastric fascial defect. The infraumbilical port was removed with an interrupted stitch of 0 Vicryl used to close this fascial defect. The Bennett-Krause drain was anchored in place with 0 Vicryl suture. Lidocaine 1% with epinephrine in a 50:50 mix with 0.5% Marcaine was infiltrated about all incisions. 4-0 Vicryl using a subcuticular stitch was placed to approximate the skin of the epigastric and infraumbilical incisions. Dermabond was applied. A sterile dressing was applied to the drain. The anesthesia was reversed. She was extubated and brought to the recovery room in fair condition. Michael Najera MD /[id number] [place]
== END 2018-10-20 12:26 | disposition home or self-care (01) | DRG 419 ==
LOC: JP.ED 21:55 → JP.MS 10-17 02:45 → OBSVTOIN 10-18 11:45
PROVIDERS: ADMIT Family Medicine; ATTEND Internal Medicine
PROC: 0FT44ZZ Resection of Gallbladder, Percutaneous Endoscopic Approach (ICD-10-PCS; principal; 2018-10-18)
PROC: BF13YZZ Fluoroscopy of Gallbladder and Bile Ducts using Other Contrast (ICD-10-PCS; 2018-10-18)
DX: K80.00 Calculus of gallbladder with acute cholecystitis without obstruction (principal); R94.5 Abnormal results of liver function studies; I10 Essential (primary) hypertension; K21.9 Gastro-esophageal reflux disease without esophagitis; Z85.3 Personal history of malignant neoplasm of breast; Z90.10 Acquired absence of unspecified breast and nipple; Z87.891 Personal history of nicotine dependence; Z88.1 Allergy status to other antibiotic agents; Z91.040 Latex allergy status; Z79.82 Long term (current) use of aspirin; Z79.899 Other long term (current) drug therapy; H91.90 Unspecified hearing loss, unspecified ear; H54.7 Unspecified visual loss
CPT/HCPCS: 36415 ×2; 74177; 74181; 80053 ×3; 81001; 82248; 83605; 83690; 85025 ×2; 85027; 96361 ×2; 96365; 96366; 96367; 96375 ×3; 96376; 99284 ×2; A9270 ×3; C9113; G0378 ×2; J1100; J2001 ×2; J2405 ×3; J2543; J2704; J2710; J3010 ×3; J3480 ×2; J3490 ×2; J7030 ×6; J7120; 87070; 87075; 87077; 87205; 88304; 96374; J2310

== ENCOUNTER 2023-09-27 07:05 | Day surgery (SDC) | payer MEDICARE ==
[2023-09-27] MEDS: Sodium Chloride 0.9% 10 ML Syringe FLUSH PRN (07:51)
== END 2023-09-27 08:50 | disposition home or self-care (01) ==
LOC: JP.SDS 07:05
PROVIDERS: ATTEND Ophthalmology
DX: H25.11 Age-related nuclear cataract, right eye (principal); I10 Essential (primary) hypertension; K21.9 Gastro-esophageal reflux disease without esophagitis
CPT/HCPCS: 00142-QZ; J3490; V2632

== ENCOUNTER 2023-10-11 08:23 | Day surgery (SDC) | payer MEDICARE ==
[2023-10-11] MEDS: Sodium Chloride 0.9% 10 ML Syringe FLUSH ONE (09:26)
== END 2023-10-11 10:35 | disposition home or self-care (01) ==
LOC: JP.SDS 08:23
PROVIDERS: ATTEND Ophthalmology
DX: H25.12 Age-related nuclear cataract, left eye (principal)
CPT/HCPCS: 66984; J3490; V2632